=== PATIENT | male | born 1970 | race Two or more races ===

== ENCOUNTER 2022-05-04 11:00 | Outpatient (CLI) | payer BC, SELFPAY ==
[2022-05-04 18:45] LABS: Basophils Absolute Auto 0.1 K/mm3 (0.0-0.1); Basophils Percent Auto 0.9 % (0.2-1.2); Eosinophils Absolute Auto 0.1 K/mm3 (0-0.3); Eosinophils Percent Auto 1.3 % (0-4.4); Hematocrit 46.4 % (42.0-52.0); Hemoglobin 15.6 g/dL (14.0-18.0); Immature Granulocyte Absolute 0.02 K/mm3 (0.00-0.031); Immature Granulocyte Percent A 0.3 % (0-0.5); Lymphocytes Absolute Auto 1.62 K/mm3 (0.9-3.2); Lymphocytes Percent Auto 23.8 % (18.3-44.2); Mean Corpuscular HGB Conc 33.6 g/dl (32-36); Mean Corpuscular Hemoglobin 31.9 pg (26-34); Mean Corpuscular Volume 94.9 fl (80-100); Mean Platelet Volume 10.8 fl (7.4-10.4); Monocytes Absolute Auto 0.5 K/mm3 (0.1-0.6); Monocytes Percent Auto 7.6 % (2.6-8.5); Neutrophils Absolute Auto 4.5 K/mm3 (1.3-6.7); Neutrophils Percent Auto 66.1 % (45.5-73.1); Platelet Count Result 247 k/mm3 (150-375); Red Blood Count 4.89 M/mm3 (4.6-6.20); Red Cell Distribution Width 12.2 % (11.5-14.5); White Blood Count 6.8 K/mm3 (4.5-10.0)
[2022-05-04 19:02] LABS: Phenytoin Dilantin 12 ug/mL (10-20)
[2022-05-04 19:23] LABS: LDL Cholesterol Direct 105 mg/dL
[2022-05-04 19:28] LABS: Alanine Aminotransferase 32 U/L (6-50); Albumin Level 4.8 g/dL (3.5-5.1); Alkaline Phosphatase 113 U/L (38-126); Anion Gap 11 mmol/L (8-16); Aspartate Amino Transferase 27 U/L (17-59); Bilirubin,Total 0.5 mg/dL (0.2-1.3); Blood Urea Nitrogen 12 mg/dL (9-20); Calcium 9.7 mg/dL (8.4-10.2); Carbon Dioxide 23 mmol/L (22-30); Chloride 105 mmol/L (98-107); Cholesterol 220 mg/dL (0-200); Estimated Glomerular Filt Rate > 60; Glucose 104 mg/dL (65-110); HDL Direct 61 mg/dL; Potassium 4.3 mmol/L (3.4-5.0); Sodium 139 mmol/L (137-145); Triglycerides 115 mg/dL (<150)
[2022-05-04 19:40] LABS: Prostate Specific Antigen 0.8 ng/mL (< OR = 4.0)
== END 2022-05-04 11:01 | disposition home or self-care (01) ==
LOC: ANHGOSHLAB 11:01
PROVIDERS: PCP Internal Medicine; Visit Provider Nurse Practitioner
DX: G40.409 Other generalized epilepsy and epileptic syndromes, not intractable, without status epilepticus (principal); Z13.220 Encounter for screening for lipoid disorders; Z13.29 Encounter for screening for other suspected endocrine disorder; Z12.5 Encounter for screening for malignant neoplasm of prostate
CPT/HCPCS: 36415; 80053; 80061; 80185; 84153; 85025; G0103

== ENCOUNTER 2023-08-30 16:57 | Emergency (ER) | payer BC, SELFPAY ==
--- NOTE | ~2023-08-30 | CT_ITS ---
EXAMINATION: CT brain wo con DATE: 08/30/2023 22:22 INDICATION: kearney, htn . TECHNIQUE: Computed tomography (CT) of the head was performed without intravenous contrast. The mA wa s adjusted according to patient size. Iterative reconstruction technique was employed. The dose-lengt h product was 681.00 mGy-cm. COMPARISON: None. FINDINGS: No acute intracranial hemorrhage or extra-axial fluid collection. No hydrocephalus, mass, or herniation. No acute ischemic infarct. Unremarkable dural venous sinus attenuation. No acute osseous abnormality. The aerated spaces are clear. IMPRESSION: No acute intracranial process. Reviewed, dictated and finalized at location K.
[2023-08-30 17:03] VITALS: BP 196/97; PULSE 73; RESP 20; TEMP 36.4; O2SAT 99
[2023-08-30 20:41] VITALS: BP 193/87; PULSE 58; TEMP 36.2; O2SAT 99
[2023-08-30 21:00] VITALS: BP 169/103; PULSE 62; RESP 16; TEMP 36.8; O2SAT 97
--- NOTE | 2023-08-30 21:56 | ECG_ITS ---
Test Date: 2023-08-30 21:09:07 Measurements Intervals [place] Rate: 56 P: 30 [place]: 185 QRS: 24 QRSD: 96 T: 54 QT: 388 QTc: 375 Interpretive Statements SINUS BRADYCARDIA BASELINE ARTIFACT- I, III BORDERLINE ECG No previous ECG available for comparison Electronically Signed On 08-31-2023 06:17:30 CDT by Gigi Seaman D.O.
[2023-08-30] MEDS: METOCLOPRAMIDE HCL INJ 10 MG/2 ML VIAL IV PUSH (23:06)
[2023-08-30] MEDS: ACETAMINOPHEN 500 MG TABLET 1000 MG PO (23:06)
[2023-08-30] MEDS: SODIUM CHLORIDE 0.9% IV 1,000 ML 999 ML IV CONT (23:07)
[2023-08-30] MEDS: diphenhydrAMINE HCl INJ 50 MG/ML VIAL 25 MG IV PUSH (23:07)
[2023-08-30] MEDS: KETOROLAC 30 MG/ML VIAL (*BKC) IV PUSH (23:07)
[2023-08-30 23:09] VITALS: BP 138/91; PULSE 62; RESP 19; O2SAT 95
[2023-08-30] MEDS: dexAMETHasone SOD PHOS INJ 10 MG/ML 1 ML VIAL IV PUSH (23:09)
[2023-08-30 23:15] LABS: Basophils Percent Auto 0.4 % (0.2-1.2); Eosinophils Percent Auto 0.1 % (0-4.4); Hematocrit 44.7 % (42.0-52.0); Hemoglobin 15.5 g/dL (14.0-18.0); Immature Granulocyte Absolute 0.02 K/mm3 (0.00-0.031); Immature Granulocyte Percent A 0.3 % (0-0.5); Lymphocytes Absolute Auto 1.72 K/mm3 (0.9-3.2); Lymphocytes Percent Auto 23.9 % (18.3-44.2); Mean Corpuscular HGB Conc 34.7 g/dl (32-36); Mean Corpuscular Hemoglobin 32.6 pg (26-34); Mean Corpuscular Volume 94.1 fl (80-100); Mean Platelet Volume 10.4 fl (7.4-10.4); Monocytes Absolute Auto 0.5 K/mm3 (0.1-0.6); Monocytes Percent Auto 6.7 % (2.6-8.5); Neutrophils Percent Auto 68.6 % (45.5-73.1); Platelet Count Result 220 k/mm3 (150-375); Red Blood Count 4.75 M/mm3 (4.6-6.20); Red Cell Distribution Width 11.9 % (11.5-14.5); White Blood Count 7.2 K/mm3 (4.5-10.0)
[2023-08-30 23:26] LABS: Alanine Aminotransferase 26 U/L (6-50); Alkaline Phosphatase 108 U/L (38-126); Anion Gap 16 mmol/L (4-12); Aspartate Amino Transferase 24 U/L (17-59); Bilirubin,Total 0.6 mg/dL (0.2-1.3); Blood Urea Nitrogen 11 mg/dL (9-20); Carbon Dioxide 22 mmol/L (22-30); Chloride 101 mmol/L (98-107); Estimated CRCL calculation 119 ml/min; Estimated Glomerular Filt Rate > 60; Glucose 99 mg/dL (65-110); Sodium 139 mmol/L (137-145)
[2023-08-30 23:37] LABS: Troponin I < 0.012 ng/mL (0.000-0.034)
[2023-08-30 23:46] VITALS: BP 125/93; PULSE 54; RESP 14; O2SAT 92
[2023-08-31 00:16] VITALS: BP 150/94; PULSE 54; RESP 18; O2SAT 95
[2023-08-31 00:27] LABS: Appearance Urine Clear (Clear); Bilirubin Urine Negative (Negative); Blood Urine Negative (Negative); Color Urine Yellow (Yellow); Glucose Urine UA Negative (Negative); Ketones Urine 1+ mg/dL (Negative); Leukocyte Esterase Ur Negative LEU/UL (Negative); Nitrate Urine Negative (Negative); Protein Urine Negative (Negative); Specific Grav Ur 1.011 (1.001-1.035); Urobilinogen Urine 0.2 mg/dL (<2.0)
--- NOTE | 2023-08-31 00:29 | ED.GENADULT ---
HPI - General Adult General Chief complaint: Recheck/Abnormal Lab/Rx Stated complaint: htn Time Seen by Provider: 08/30/23 21:56 Source: patient Mode of arrival: ambulatory Limitations: no limitations History of Present Illness HPI narrative: patient is a 53-year-old male who presents the ED with report of headache and hypertension. Patient reports he has had a fairly constant headache over the last 1 week. He has been taking Advil for the pain with some improvement, though states it always returns. he denies previous history of headaches or migraines. He began taking his blood pressure today and noted to be elevated into the 160s to 190 systolic at home. He then went to an urgent care where was noted to be in the 200 systolic. He was then referred to ED for further evaluation. Patient reports his blood pressure has been noted to be elevated in the past when he had COVID-19 infection, but he is not currently on any antihypertensives. Does not routinely check his blood pressure. Pain denies any dizziness, lightheadedness, vision changes, chest pain, shortness of breath, focal weakness or numbness, nausea, vomiting, photophobia, phonophobia, confusion, slurred speech, abdominal pain. Related Data Allergies Allergy/AdvReac Type Severity Reaction Status Date / Time Contrast Media Allergy Unknown Dizziness Uncoded 02/28/23 10:10 Review of Systems Review of Systems: CONSTITUTIONAL: Denies fever, chills, or sweats. ENT: Denies vision changes, photophobia, phonophobia. CARDIOVASCULAR: Denies chest pain, palpitations, or edema. RESPIRATORY: Denies cough or dyspnea. GASTROINTESTINAL: Denies abdominal pain, nausea, vomiting MUSCULOSKELETAL: Denies back pain, extremity pain, myalgia. NEUROLOGIC: See HPI. All systems reviewed & are unremarkable except as noted in HPI and below PMFSH Past Medical History Medical History Epilepsy Grand mal seizure disorder History of blood clots Pilonidal cyst removed VPB (ventricular premature beat) Family History Family History Father Diabetes mellitus Sibling Family history of mental disorder Mother Hypertension Son Autism Other Family history of autism Social History Social History (Reviewed 08/31/23 @ 03:29 by TITI Jenkins Smoking status: Former smoker Smoking end date: 02/07/12 Alcohol intake: current Lack of Transportation: No Lack of Food: Never True Current Housing: I Have Housing Concerned About Future Housing: No Difficulty Paying Gas/Electric Bills: No Difficulty Paying for Meds: No Currently Unemployed: No Education: High School Diploma/GED Difficulty w/ Childcare or Family Care: No Exam Narrative: GENERAL: Well appearing, obese with BMI of 33.9, non-toxic, in no acute distress. HEAD: Normocephalic, atraumatic. EYES: PERRL/EOMI, conjunctivae clear bilaterally. No nystagmus. NECK: Supple. No meningeal signs. RESPIRATORY: Airway patent, respirations nonlabored. Clear to auscultation bilaterally, no rales, rhonchi, wheezing. CARDIOVASCULAR: Regular rate and rhythm without murmurs, rubs, or gallops. Peripheral pulses 2+ and equal bilaterally. MUSCULOSKELETAL: Moves all extremities. No gross deformities. SKIN: Warm, dry, normal color. No rashes. NEURO: A&O X3. Speech clear. Follows commands. CN II-XII grossly intact. Sensation grossly intact. Steady gait. No ataxic movements. Strength 5/5 in upper and lower extremities bilaterally. No pronator drift. Equal contact lens technician strength bilaterally. PSYCHIATRIC: Appropriate mood and affect. Normal interaction. Course Vital Signs Vital signs: Vital Signs Temperature 97.5 F L 08/30/23 17:03 Pulse Rate 73 08/30/23 17:03 Respiratory Rate 20 08/30/23 17:03 Blood Pressure 196/97 H 08/30/23 17:03 Pulse Oximetry 99 08/30/23 17:03 Oxygen Delivery Room
[2023-08-31 00:32] VITALS: BP 144/85; PULSE 55; RESP 19; O2SAT 95
[2023-08-31 00:36] LABS: Add Urine Microscopic? YES
[2023-08-31 00:47] VITALS: BP 128/80; PULSE 48; RESP 18; O2SAT 97
[2023-08-31 01:02] VITALS: BP 142/87; PULSE 53; RESP 17; O2SAT 94
== END 2023-08-31 01:15 | disposition home or self-care (01) ==
PROVIDERS: Emergency Provider Physician Assistant; PCP Internal Medicine
DX: G43.909 Migraine, unspecified, not intractable, without status migrainosus (principal); R03.0 Elevated blood-pressure reading, without diagnosis of hypertension; G40.909 Epilepsy, unspecified, not intractable, without status epilepticus; Z86.16 Personal history of COVID-19; Z87.891 Personal history of nicotine dependence; R00.1 Bradycardia, unspecified
CPT/HCPCS: 36415; 70450; 80053; 81001; 84484; 85025; 93005; 96361; 96374; 96375; 99284; A9270; J1100; J1200; J1885; J2765; J7030